=== PATIENT | male | born 1960 | race African-American/Black ===

== ENCOUNTER → 2018-04-09 | Outpatient (CLI) | payer OTHER ==
--- NOTE | 2018-04-09 22:48 | ECHO ---
DATE OF PROCEDURE: 04/09/2018 REFERRING PHYSICIAN: DANA Johnson PATIENT LOCATION: Outpatient REASON FOR ECHOCARDIOGRAM: Hypertension 2D MEASUREMENTS: IVS: 1.0 cm LV: 3.91 cm LVPW: 1.0 cm LA: 3.0 cm Aorta: 3.0 cm DOPPLER MEASUREMENTS: Peak velocity across the aortic valve: 0.96 m/s Peak velocity across the LVOT: 0.84 m/s Mitral E: 0.63, Mitral A: 0.81, with a ratio of 0.8 Maximum tricuspid valve velocity: 2.6 m/s 2D COMMENTS: 1. Normal left ventricular size, wall thickness and normal global left ventricular systolic function. The estimated left ventricular systolic ejection fraction is 60% to 65%. 2. Normal left atrium. Normal right atrium and right ventricle. 3. Normal aortic root. 4. No pericardial effusion seen. 5. Minimally calcified aortic valve with normal leaflet excursion. Normal mitral valve, tricuspid valve. The pulmonic valve and proximal pulmonary artery branches were not well visualized. 7. The inferior vena cava was not visualized. DOPPLER: It detects trace mitral regurgitation and mild tricuspid regurgitation. The calculated pulmonary artery systolic pressure varied between 30 to 40 mmHg. Abnormal relaxation pattern was noted across the mitral valve leaflets consistent with a delayed relaxation. IMPRESSION: 1. Normal global left ventricular systolic function. There are features of left ventricular diastolic dysfunction manifested by abnormal relaxation. 2. Trace mitral regurgitation. 3. Mild tricuspid regurgitation with mild pulmonary hypertension.
== END ==
LOC: M CARPUL 08:49
PROVIDERS: ATTEND Physician Assistant
DX: I34.0 Nonrheumatic mitral (valve) insufficiency (principal); I36.1 Nonrheumatic tricuspid (valve) insufficiency; I10 Essential (primary) hypertension

== ENCOUNTER 2020-09-03 12:49 | Emergency (ER) | payer OTHER ==
[~2020-09-03] VITALS: Ht 177.8 cm; Wt 62.7 kg
[~2020-09-03 12:49] MED LIST: D3 A1000 PO; INSULANT SC; LISI20TA33 PO; METF10004 PO
[2020-09-03 12:50] VITALS: BP 136/88
--- NOTE | 2020-09-03 14:23 | REP ---
INDICATION: L LOWER POLE TESTIS TENDERNESS. SOFT TISSUE MASS L PERINEUM. COMPARISON: None. TECHNIQUE: Bilateral testicular ultrasound with Doppler FINDINGS: Right testicle measures 4.4 x 2.2 x 3.8 cm and the left measures 4.2 x 2.1 x 3.4 cm. The testicular parenchymal echo pattern and vascular pattern is within normal limits bilaterally. There are no masses. There is no significant hydrocele on either side. There is an incidental spermatocele seen bilaterally 3 mm on the right and 2 mm on the left. The right testicular RI is 0.51 on the left is 0.68. 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 IMPRESSION: 1. Left-sided varicocele 2. No torsion or other abnormality <Electronically signed by Aron Roberts > 09/03/20 [id number]
== END 2020-09-03 14:48 | disposition left against medical advice (07) ==
LOC: M ED 12:49
DX: R22.2 Localized swelling, mass and lump, trunk (principal); I86.1 Scrotal varices; E11.9 Type 2 diabetes mellitus without complications; I10 Essential (primary) hypertension; G47.30 Sleep apnea, unspecified; F17.200 Nicotine dependence, unspecified, uncomplicated; Z80.9 Family history of malignant neoplasm, unspecified

== ENCOUNTER 2021-09-25 06:30 | Emergency (ER) | payer OTHER ==
[~2021-09-25] VITALS: Ht 175.3 cm; Wt 68.2 kg
[2021-09-25 06:32] VITALS: BP 146/89
== END 2021-09-25 11:05 | disposition left against medical advice (07) ==
LOC: M ED 06:30
DX: Z53.21 Procedure and treatment not carried out due to patient leaving prior to being seen by health care provider (principal)

== ENCOUNTER → 2021-11-19 | Outpatient (REF) | payer OTHER | LOC: M LAB REF 17:31 | PROVIDERS: ATTEND Physician Assistant Medical | DX: L98.8 Other specified disorders of the skin and subcutaneous tissue (principal) ==

== ENCOUNTER → 2022-05-04 | Outpatient (CLI) | payer OTHER | LOC: M RAD 07:14 | PROVIDERS: ATTEND Physician Assistant | DX: Z12.2 Encounter for screening for malignant neoplasm of respiratory organs (principal); Z87.891 Personal history of nicotine dependence; J43.9 Emphysema, unspecified ==

== ENCOUNTER → 2022-10-16 | Outpatient (CLI) | payer OTHER ==
[~2022-10-16] MED LIST changes: +TIOT18INH INH
== END ==
LOC: M RAD 09:17
PROVIDERS: ATTEND Nurse Practitioner Family
DX: M79.604 Pain in right leg (principal)

== ENCOUNTER 2022-11-04 13:25 | Emergency (ER) | payer OTHER ==
[~2022-11-04] VITALS: Ht 175.3 cm; Wt 66.4 kg
[2022-11-04 15:02] LABS: BASO % 0.3 % (0.0-1.0); EOS # 0.1 10^3/uL (0.0-0.5); HEMATOCRIT 41.6 % (42.0-52.0); HEMOGLOBIN 14.5 g/dl (13.5-17.5); LYMPH # 2.4 10^3/uL (1.5-5.0); LYMPH % 20.4 % (24.0-44.0); MEAN CORPUSCULAR HEMOGLOBIN 28.2 pg (27.0-33.0); MEAN CORPUSCULAR HGB CONC 34.9 g/dl (32.0-36.5); MEAN CORPUSCULAR VOLUME 80.8 fl (80.0-96.0); MONO % 8.7 % (2.0-8.0); NEUTROPHILS # 8.2 10^3/uL (1.5-8.5); NEUTROPHILS % 69.2 % (36.0-66.0); PLATELET COUNT, AUTOMATED 379 10^3/uL (150-450); RED BLOOD COUNT 5.15 10^6/uL (4.30-6.10); WHITE BLOOD COUNT 11.9 10^3/uL (4.0-10.0)
[2022-11-04 15:27] LABS: BLOOD UREA NITROGEN 9 MG/DL (9-23); CALCIUM LEVEL 9.8 MG/DL (8.3-10.6); CARBON DIOXIDE LEVEL 29 MMOL/L (20-31); CHLORIDE LEVEL 101 MMOL/L (98-107); CREATININE FOR GFR 0.75 MG/DL (0.70-1.30); GLOMERULAR FILTRATION RATE > 60.0 (>49); GLUCOSE, FASTING 167 MG/DL (74-106); SODIUM LEVEL 136 MMOL/L (136-145)
[2022-11-04 15:28] LABS: URIC ACID 5.5 MG/DL (3.7-9.2)
[2022-11-04 15:42] LABS: ERYTHROCYTE SEDIMENTATION RATE 55 mm/hr (0-20)
[2022-11-04] MEDS ORDERED: dexAMETHasone 20MG/5ML VIAL IV ONE ×2 (15:50→17:40)
[2022-11-04] MEDS ORDERED: ceFAZolin SOD 2 GM in IV 1 EA IV ONE (15:50)
[2022-11-04] MEDS ORDERED: NS 1,000 ML IV ONE (16:05)
[2022-11-04] MEDS ORDERED: ISOVUE-370 76% 100ML VIAL As Ordered ONE (16:11)
[2022-11-04] MEDS ORDERED: CLINDAMYCIN 900 MG in IV 1 EA IV ONE (16:15)
[2022-11-04] MEDS ORDERED: CLEO300C2 PO (17:40)
[2022-11-04 18:05] VITALS: BP 117/79; TEMP 98; O2SAT 98
== END 2022-11-04 18:07 | disposition home or self-care (01) ==
LOC: M ED 13:25
DX: L03.115 Cellulitis of right lower limb (principal); K59.00 Constipation, unspecified; K57.30 Diverticulosis of large intestine without perforation or abscess without bleeding; I71.40 Abdominal aortic aneurysm, without rupture, unspecified; E11.9 Type 2 diabetes mellitus without complications; I10 Essential (primary) hypertension; F17.200 Nicotine dependence, unspecified, uncomplicated; Z91.018 Allergy to other foods
CPT/HCPCS: 72193; 73610; 73630; 80048; 84550; 85025; 85652; 86140; 87070; 87077; 87186; 87205; 96365; 96366; 96375; 99284; J0737; J1100; Q9967

== ENCOUNTER → 2023-09-24 | Outpatient (CLI) | payer OTHER ==
[~2023-09-24] MED LIST changes: +CLEO300C2 PO
== END ==
LOC: M SLEEP 20:00
PROVIDERS: ATTEND Internal Medicine
DX: G47.61 Periodic limb movement disorder (principal)